=== PATIENT | male | born 1985 | race African-American/Black ===

== ENCOUNTER 2021-08-28 10:33 | Emergency (ER) | payer OTHER ==
[2021-08-28 10:39] VITALS: TEMP 98.5; BMI 22.2
[2021-08-28] MEDS ORDERED: GLUCAGON 1 MG KIT IVPUSH ONE (10:53)
[2021-08-28] MEDS ORDERED: GLUCAGON 1 MG KIT ONE (10:58)
[2021-08-28 11:44] LABS: BASO % 1.4 % (0-2.0); EOS % 0.3 % (0-4.5); HEMATOCRIT 49.8 % (35.4-49); HEMOGLOBIN 16.6 GM/dl (11.7-16.9); LYMPH % 14.5 % (8-40); MCH 25.7 pg (25.7-33.7); MCHC 33.4 g/dl (32.0-35.9); MEAN PLT VOLUME 10.9 fl (7.5-11.1); MONO % 6.9 % (3.8-10.2); NEUT % 76.9 % (42.8-82.8); PLATELET COUNT 144 10^3/uL (134-434); RBC 6.48 M/mm3 (4.00-5.60); WHITE BLOOD COUNT 7.3 K/mm3 (4.0-10.8)
[2021-08-28 11:49] LABS: ALBUMIN 4.8 g/dl (3.4-5.0); CALCIUM 9.7 mg/dl (8.5-10); CREATININE 0.9 mg/dl (0.55-1.3)
[2021-08-28 11:51] LABS: INR 1.05 (0.82-1.09); PROTHROMBIN TIME (PATIENT) 11.7 SEC (10.2-13.0)
[2021-08-28 14:02] VITALS: PULSE 72
[2021-08-28] MEDS ORDERED: SODIUM CHLORIDE 0.9% 500 ML INFUS.BAG IV ONE (14:29)
[2021-08-28] MEDS ORDERED: ACETAMINOPHEN 1000 MG/100 ML VIAL IVPB ONE (14:29)
[2021-08-28] MEDS ORDERED: ACETAMINOPHEN INJECTION 100 ML IVPB ONE (14:32)
[2021-08-28 14:43] VITALS: BP 112/72
== END 2021-08-28 17:38 | disposition left against medical advice (07) ==
LOC: FER 10:33 → EDBD 10:33 → FER 17:38
PROC: 3E0333Z Introduction of Anti-inflammatory into Peripheral Vein, Percutaneous Approach (ICD-10-PCS; principal; 2021-08-28)
PROC: 3E033GC Introduction of Other Therapeutic Substance into Peripheral Vein, Percutaneous Approach (ICD-10-PCS; 2021-08-28)
DX: T18.128A Food in esophagus causing other injury, initial encounter (principal)
CPT/HCPCS: 36415; 70360-TC-FY; 71046-TC-FY; 80053; 85025; 85610; 85730; 93005; 96374; 96375; 99285-25; C9803; J0131; U0003; U0005

== ENCOUNTER 2021-08-28 18:10 | Observation (INO) | payer SELFPAY ==
[2021-08-28 18:52] VITALS: BMI 21.4
[2021-08-28] MEDS ORDERED: MIDAZOLAM HCL 2 MG/2 ML SINGLE DOSE VIAL ONE (20:07)
[2021-08-28] MEDS ORDERED: EPINEPHrine/PF 1 MG/1 ML (1:1,000) AMPULE ONE (20:37)
[2021-08-28] MEDS ORDERED: EPINEPHrine/PF 1 MG/1 ML (1:1,000) AMPULE ITR ONE (20:40)
[2021-08-28] MEDS: DEXTROSE 5%-NORMAL SALINE 1,000 ML IV SCH (21:52)
[2021-08-28] MEDS ORDERED: PANTOPRAZOLE SODIUM 40 MG in SODIUM CHLORIDE 100 ML IVPB SCH (22:00)
[2021-08-28] MEDS ORDERED: PANTOPRAZOLE SODIUM 40 MG VIAL IVPUSH SCH (22:00)
[2021-08-29] MEDS: DEXTROSE 5%-NORMAL SALINE 1,000 ML IV SCH (01:05)
[2021-08-29 06:31] VITALS: BP 109/49; PULSE 63; TEMP 98.4
== END 2021-08-29 10:30 | disposition left against medical advice (07) ==
LOC: J7W 18:10 → INTOOBSV 18:10
PROVIDERS: ADMIT Internal Medicine Gastroenterology; ATTEND Internal Medicine
PROC: 3E033GC Introduction of Other Therapeutic Substance into Peripheral Vein, Percutaneous Approach (ICD-10-PCS; principal; 2021-08-28 19:42)
DX: R09.89 Other specified symptoms and signs involving the circulatory and respiratory systems (principal); J30.2 Other seasonal allergic rhinitis
CPT/HCPCS: 94010; 94760; G0378